=== PATIENT | female | born 1965 | race Caucasian/White ===

== ENCOUNTER 2023-08-16 00:41 | Inpatient (IN) | payer MEDICAID, OTHER ==
[~2023-08-16] VITALS: Ht 165.1 cm; Wt 96.6 kg
[2023-08-16] MEDS: dilTIAZem 25 MG/5 ML VIAL IV ONE ×2 (01:15→10:41)
[2023-08-16 01:17] LABS: Hematocrit 46.5 % (36.0-46.0); Hemoglobin 15.8 g/dL (12.2-16.2); Mean Corpuscular Hemoglobin 30.6 pg (28.0-32.0); Red Blood Cells 5.16 10^6/uL (4.0-5.20); Red Cell Distribution Width 13.3 % (11.8-14.3); White Blood Cell 6.5 10^3/uL (4.4-10.8)
[2023-08-16 01:19] LABS: Band Neutrophils % (manual) 0; Basophils % (manual) 0 (0.0-2.0); Blast Cells 0; Metamyelocytes % 0; Myelocytes % 0; Promyelocytes % 0
[2023-08-16 01:47] LABS: Alanine Aminotransferase 12 U/L (7-40); Albumin 4.3 g/dL (3.2-4.8); Alkaline Phosphatase 81 U/L (46-116); Anion Gap 8 (5-15); Aspartate Aminotransferase < 8 U/L (13-40); BUN/Creatinine Ratio 8.8 (10.0-20.0); Blood Urea Nitrogen 7 mg/dL (9-23); Calcium 11.3 mg/dL (8.7-10.4); Carbon Dioxide 27 mmol/L (20-30); Chloride 110 mmol/L (98-107); Glucose 106 mg/dL (74-106); Potassium 3.6 mmol/L (3.5-5.1); Sodium 145 mmol/L (136-145)
[2023-08-16 01:48] LABS: Bilirubin, Total 0.3 mg/dL (0.2-1.0); Total Protein 7.1 g/dL (5.7-8.2)
[2023-08-16 02:49] LABS: Eosinophils % (manual) 2 (0-7); Lymphocytes % (manual) 54 (10.0-50.0); Monocytes % (manual) 10 (0-12); Reactive Lymphocytes 8
[2023-08-16 02:50] LABS: Platelet Estimate Adequate
[2023-08-16] MEDS: dilTIAZem 125mg/125ml BAG KIT 125 ML IV ONE (03:30)
[2023-08-16] MEDS ORDERED: DOCUSATE SOD 100 MG CAP PO PRN (05:30)
[2023-08-16] MEDS ORDERED: ONDANSETRON HCL 4 MG/2 ML VIAL IV PRN (05:30)
[2023-08-16] MEDS ORDERED: ACETAMINOPHEN 325 MG TAB PO PRN (05:30)
[2023-08-16] MEDS ORDERED: HYDROcodone-ACET 5/325MG TAB PO PRN (05:30)
[2023-08-16] MEDS: SODIUM CHLOR 0.9% PF (SALINE LOCK) 10ML VIAL/SYR IV SCH (06:00)
[2023-08-16 06:31] LABS: Alanine Aminotransferase 14 U/L (7-40); Albumin 4.6 g/dL (3.2-4.8); Alkaline Phosphatase 88 U/L (46-116); Anion Gap 3 (5-15); Aspartate Aminotransferase 9 U/L (13-40); BUN/Creatinine Ratio 9.3 (10.0-20.0); Blood Urea Nitrogen 7 mg/dL (9-23); Calcium 11.3 mg/dL (8.5-10.1); Carbon Dioxide 29 mmol/L (20-30); Chloride 109 mmol/L (98-107); Glucose 102 mg/dL (74-106); Potassium 3.7 mmol/L (3.5-5.1); Sodium 141 mmol/L (136-145)
[2023-08-16 06:32] LABS: Bilirubin, Total 0.3 mg/dL (0.2-1.0); Total Protein 7.3 g/dL (5.7-8.2)
[2023-08-16] MEDS ORDERED: MORPHINE SULFATE INJ 2 MG/ml SYRG IV PRN (07:15)
[2023-08-16] MEDS ORDERED: NITROGLYCERIN 0.4 MG SL TAB SL PRN (07:15)
[2023-08-16 07:23] LABS: Hematocrit 47.8 % (36.0-46.0); Mean Corpuscular Hemoglobin 30.7 pg (28.0-32.0); Mean Corpuscular Hgb Conc. 33.6 g/dL (32.0-36.0); Mean Corpuscular Volume 91.5 fL (80.0-100.0); Red Blood Cells 5.22 10^6/uL (4.0-5.20); Red Cell Distribution Width 13.5 % (11.8-14.3); White Blood Cell 5.6 10^3/uL (4.4-10.8)
[2023-08-16 07:32] LABS: Band Neutrophils % (manual) 0; Basophils % (manual) 0 (0.0-2.0); Blast Cells 0; Eosinophils % (manual) 0 (0-7); Metamyelocytes % 0; Myelocytes % 0; Promyelocytes % 0
[2023-08-16 09:32] LABS: Lymphocytes % (manual) 67 (10.0-50.0); Monocytes % (manual) 4 (0-12); Platelet Estimate Adequate; Reactive Lymphocytes 7
[2023-08-16] MEDS ORDERED: dilTIAZem 120MG ER CAP PO SCH (10:00)
[2023-08-16] MEDS ORDERED: AMIODARONE HCL 200 MG TAB PO SCH (10:00)
[2023-08-16] MEDS: AMIODARONE HCL 200 MG TAB PO SCH (10:41)
[2023-08-16] MEDS: POTASSIUM EFFERVESENT TAB 25 MEQ PO ONE (10:41)
[2023-08-16] MEDS: DIGOXIN (250MCG/ML) 2 ML AMPULE IV ONE (10:42)
[2023-08-16 12:20] VITALS: PULSE 88; RESP 14; O2SAT 98
[2023-08-16 14:58] LABS: Urine Bacteria FEW /hpf (None Seen); Urine Blood Negative /uL (Negative); Urine Clarity Turbid (Clear); Urine Color Light-Yellow (Yellow); Urine Protein, UAD Negative (Negative); Urine Specific Gravity 1.007 (1.001-1.035); Urine Urobilinogen Normal (Negative); Urine WBC 24 /hpf (0 - 5)
[2023-08-16] MEDS: RIVAROXABAN 20 MG TAB PO SCH (18:09)
[2023-08-16 20:00] VITALS: PULSE 96
[2023-08-16 22:32] VITALS: PULSE 78; RESP 20
[2023-08-16 22:33] VITALS: BP 94/69; PULSE 78; RESP 20; TEMP 98.9; O2SAT 95
[2023-08-16] MEDS ORDERED: DILT-29 PO (23:35)
[2023-08-16] MEDS ORDERED: CHOL20007 PO (23:35)
[2023-08-16] MEDS ORDERED: AMIO200T33 PO (23:36)
[2023-08-16] MEDS ORDERED: RIVA20TA PO (23:38)
[2023-08-17] VITALS (8 sets, daily range): BP systolic 100–119; BP diastolic 63–85; PULSE 50–144; RESP 16–20; TEMP 97.6–98; O2SAT 92–100
[2023-08-17 06:19] LABS: Alanine Aminotransferase 14 U/L (7-40); Alkaline Phosphatase 74 U/L (46-116); Calcium 10.8 mg/dL (8.5-10.1); Carbon Dioxide 29 mmol/L (20-30); Chloride 113 mmol/L (98-107); Glucose 96 mg/dL (74-106)
[2023-08-17 06:20] LABS: Albumin 3.9 g/dL (3.2-4.8); Anion Gap 2 (5-15); Aspartate Aminotransferase < 8 U/L (13-40); BUN/Creatinine Ratio 15.4 (10.0-20.0); Bilirubin, Total 0.3 mg/dL (0.2-1.0); Blood Urea Nitrogen 10 mg/dL (9-23); Potassium 3.9 mmol/L (3.5-5.1); Sodium 144 mmol/L (136-145); Total Protein 6.2 g/dL (5.7-8.2)
[2023-08-17 06:24] LABS: Hematocrit 44.7 % (36.0-46.0); Hemoglobin 15.1 g/dL (12.2-16.2); Mean Corpuscular Hemoglobin 30.5 pg (28.0-32.0); Mean Corpuscular Hgb Conc. 33.9 g/dL (32.0-36.0); Mean Corpuscular Volume 90.2 fL (80.0-100.0); Red Blood Cells 4.95 10^6/uL (4.0-5.20); Red Cell Distribution Width 13.5 % (11.8-14.3)
[2023-08-17 07:44] LABS: Basophils % (manual) 0 (0.0-2.0); Blast Cells 0; Metamyelocytes % 0; Myelocytes % 0; Promyelocytes % 0
[2023-08-17] MEDS: dilTIAZem 120MG ER CAP PO SCH (08:43)
[2023-08-17] MEDS ORDERED: DIGOXIN 0.125 MG TAB PO SCH (10:00)
[2023-08-17 10:32] LABS: Band Neutrophils % (manual) 1; Eosinophils % (manual) 1 (0-7); Lymphocytes % (manual) 61 (10.0-50.0); Monocytes % (manual) 2 (0-12); Platelet Estimate Adequate; Reactive Lymphocytes 5
[2023-08-18] VITALS (12 sets, daily range): BP systolic 93–114; BP diastolic 55–77; PULSE 48–149; RESP 16–20; TEMP 97.6–99; O2SAT 91–98
[2023-08-18] MEDS ORDERED: HYDR-4924 PO (08:44)
[2023-08-18] MEDS ORDERED: DICY10CA PO (08:48)
[2023-08-18] MEDS ORDERED: TRAM50TA2 PO (08:50)
[2023-08-18] MEDS ORDERED: PANT40TA2 PO (08:50)
[2023-08-18] MEDS: hydrOXYzine 25 MG TAB or CAP PO ONE (09:13)
[2023-08-18] MEDS ORDERED: traMADol HCL 50 MG TAB PO PRN (16:00)
[2023-08-18] MEDS ORDERED: DICYCLOMINE HCL 10 MG CAP PO PRN (16:00)
[2023-08-18] MEDS: PNEUMOCOCCAL VACC POLYS 25 MCG/0.5 ML VIAL IM ONE (16:46)
[2023-08-19] MEDS ORDERED: AMIODARONE HCL 200 MG TAB PO SCH (10:00)
[2023-08-19] MEDS ORDERED: PANTOPRAZOLE 40 MG TAB PO SCH (10:00)
[2023-08-19] MEDS ORDERED: RIVAROXABAN 20 MG TAB PO SCH (10:00)
[2023-08-19 11:07] LABS: Free T3 3.38 pg/mL (2.3-4.2)
[2023-08-19 11:09] LABS: Free T4 (Free Thyroxine) 1.77 ng/dL (0.89-1.76)
== END 2023-08-18 18:35 | disposition home or self-care (01) | DRG 201 ==
LOC: ER 00:41 → EDBD 00:41 → TELE-WESTW 07:03 → TELE 07:03 → TELE-E-ADS 19:38 → TELE-WESTW 08-17 07:36
PROVIDERS: ADMIT Internal Medicine; ATTEND Internal Medicine
DX: I48.0 Paroxysmal atrial fibrillation (principal); E66.01 Morbid (severe) obesity due to excess calories; E78.5 Hyperlipidemia, unspecified; I10 Essential (primary) hypertension; Z90.49 Acquired absence of other specified parts of digestive tract; Z98.51 Tubal ligation status; Z79.01 Long term (current) use of anticoagulants; Z68.35 Body mass index [BMI] 35.0-35.9, adult
CPT/HCPCS: 36415; 71045; 80053; 80061; 80162; 81001; 83036; 83735; 84439; 84443; 84481; 84484; 85007; 85027; 93005; G0378